=== PATIENT | male | born 1990 | race Caucasian/White ===

== ENCOUNTER 2019-07-25 14:25 | Emergency (ER) | payer BC, OTHER ==
[~2019-07-25] VITALS: Ht 175 cm; Wt 116.7 kg
[2019-07-25] MEDS ORDERED: LIDOCAINE 1% INJ 20 ML 20 ML VIAL ONE (14:37)
[2019-07-25] MEDS ORDERED: oxyCODONE/APAP 5/325MG (PERCOCET 5) TABLET PO ONE (14:45)
[2019-07-25] MEDS ORDERED: TETANUS,DIPTH,PERTUSS P/F (BOOSTRIX) 0.5 ML VIAL IM ONE (14:45)
[2019-07-25] MEDS ORDERED: ceFAZolin 2 GM IV Premixed 50 ML IV ONE (15:15)
--- NOTE | 2019-07-25 15:23 | Diagnostic Imaging Report ---
INDICATION: Injury to left thumb AP, oblique, and lateral views of the left thumb are obtained. There is an acute avulsion fracture of the distal tip of the 1st distal phalanx with about 11 mm of separation of the fracture fragments. The fracture does not appear to extend to the interphalangeal joint. There is no radiopaque foreign body. Some soft tissue gas is present at the fracture site. IMPRESSION: Acute fracture with avulsion of the tip of the 1st distal phalanx. There is no radiopaque foreign body. Dictated by: Dictated on workstation # [id number]
[2019-07-25] MEDS ORDERED: LIDOCAINE 1% INJ 20 ML 20 ML VIAL INJ ONE (15:30)
[2019-07-25] MEDS ORDERED: ceFAZolin INJECTION 2,000 MG ONE (15:31)
[2019-07-25] MEDS ORDERED: NS (IVPB) 50 ML ONE (15:32)
[2019-07-25] MEDS ORDERED: fentaNYL INJECTION 100 MCG/2 ML AMP IVP ONE (16:00)
--- NOTE | 2019-07-25 16:02 | ED General ---
General Chief Complaint: Upper Extremity Stated Complaint: LT THUMB INJ Nursing Triage Note: Was roping calves approximately 15 minutes prior to arrival and got thumb wrapped in loops of the rope. His left thumb has an open wound with the bone exposed. Is able to move thumb. Is rating pain at 6/10. States he is not up to date on tetanus vaccine. Nursing Sepsis Screen: No Definite Risk History of Present Illness Date Seen by Provider: Jul 25, 2019 Time Seen by Provider: 15:57 Initial Comments Patient presenting to emergency department shortly after sustaining a thumb injury. He had a rope tied around his left thumb when he 600 pound cow pulled at the rope causing a partial amputation. He has amputation just distal to the IP joint on his left thumb that wraps around. His nail is intact. He has numbness to the tip with intact flexion. He says his tetanus is not up-to-date. Patient says he is healthy and takes no medications on a regular basis. Allergies and Home Medications Allergies Coded Allergies: No Known Drug Allergies (Unverified , 07/25/19) Patient Home Medication List Home Medication List Reviewed: Yes Review of Systems Review of Systems Constitutional: no symptoms reported EENTM: no symptoms reported Respiratory: no symptoms reported Cardiovascular: no symptoms reported Gastrointestinal: no symptoms reported Genitourinary: no symptoms reported Musculoskeletal: no symptoms reported Skin: other (laceration) Psychiatric/Neurological: Numbness All Other Systems Reviewed Negative Unless Noted: Yes Past Oocfamq-Qyuday-Jlniez Hx Patient Social History Alcohol Use: Occasionally Uses Recreational Drug Use: No Smoking Status: Never a Smoker 2nd Hand Smoke Exposure: Yes Recent Foreign Travel: No Contact w/Someone Who Travel: No Recent Infectious Disease Expo: No Recent Hopitalizations: No Physical Abuse: No Sexual Abuse: No Mistreated: No Fear: No Seasonal Allergies Seasonal Allergies: No Past Medical History Surgeries: No Respiratory: No Cardiac: No Neurological: No Genitourinary: No Gastrointestinal: No Musculoskeletal: No Endocrine: No HEENT: No Cancer: No Psychosocial: No Integumentary: No Blood Disorders: No Adverse Reaction/Blood Tranf: No Physical Exam Vital Signs Vital Signs - First Documented 07/25/19 14:29 Temp 36.8 Pulse 88 Resp 18 B/P (MAP) 160/84 (109) Pulse Ox 98 Capillary Refill : Less Than 3 Seconds Height, Weight, BMI Height: '" Weight: lbs. oz. kg; 38.00 BMI Method: General Appearance: No Apparent Distress, WD/WN HEENT: PERRL/EOMI Neck: Supple Respiratory: No Respiratory Distress Cardiovascular: Regular Rate, Rhythm Back: Normal Inspection Extremity: Other (decreased capillary refill and left thumb.) Neurologic/Psychiatric: Alert, Oriented x3, Motor Weakness (extension of left thumb is partially intact), Sensory Deficit (sensation diminished and tip of left thumb) Skin: Other (laceration wrapping from the nail edge distally and wraps around approximately on the volar surface. Wound examined bloodless field and there is no obvious foreign body. Extensor tendon cannot be completely visualized.) Procedures/Interventions Progress Ring block done on left thumb. Approximately 7 cc of lidocaine 1% was injected in a ring fashion on the left thumb with no complications visualized. Wound was cleansed and irrigated and then wrapped. Progress/Results/Core Measures Suspected Sepsis Recent Fever Within 48 Hours: No Infection Criteria Present: None New/Unexplained Altered Menta: No Sepsis Screen: No Definite Risk SIRS Temperature: Pulse: 88 Respiratory Rate: 18 Blood Pressure 160 /84 Mean: 109 Results/Orders My Orders Orders - ISAEL BRODY DO Finger(S) (07/25/19 14:35) Dipht,Pertuss(Acell),Tet Adult (Boostrix (07/25/19 14:45) Oxycodone/Apap 5/325mg Tablet (Percocet (07/25/19 14:45) Lidocaine 1% Inj 20 Ml (Xylocaine 1% Inj (07/25/19 14:37) Cefazolin 2 Gm Iv Premixed (Ancef 2 Gm P (07/25/19 15:15) Lidocaine 1% Inj 20 Ml (Xylocaine 1% Inj (07/25/19 15:30) Cefazolin Injection (Ancef Injection) (07/25/19 15:31) Ns (Ivpb) (Sodium Chloride 0.9% Ivpb Bag (07/25/19 15:32) Medications Given in ED Current Medications Medications Dose Ordered Sig/Lima Route Start Time Stop Time Status Last Admin Dose Admin Cefazolin Sodium/ Dextrose 50 ml @ 100 mls/hr ONCE ONCE IV 07/25/19 15:15 07/25/19 15:44 DC 07/25/19 15:51 100 MLS/HR Diphtheria/ Tetanus/Acell Pertussis 0.5 ml ONCE ONCE IM 07/25/19 14:45 07/25/19 14:46 DC 07/25/19 15:20 0.5 ML Lidocaine HCl 20 ml ONCE ONCE INJ 07/25/19 15:30 07/25/19 15:31 DC 07/25/19 14:50 20 ML Oxycodone/ Acetaminophen 1 tab ONCE ONCE PO 07/25/19 14:45 07/25/19 14:46 DC 07/25/19 14:56 1 TAB Vital Signs/I&O 07/25/19 14:29 Temp 36.8 Pulse 88 Resp 18 B/P (MAP) 160/84 (109) Pulse Ox 98 Capillary Refill : Less Than 3 Seconds Blood Pressure Mean: 109 POS Progress Note : Progress Note I initially spoke to [facility] however they said they have no hand coverage that I spoke to [address] Luevano in the ER is willing to accept patient. Tetanus and Ancef given here. I did not feel good about simply closing his wound as it is open and he is at risk for infection and I do not believe his functionally intact if his wound is closed. I told patient that I do not know exactly what we done at [address] however from my thumb I would want further physicians to look at it. Patient verbalized understanding and is agreeable. He is requesting POV transfer as he will have his boss drive him to [facility]. Departure Impression Primary Impression: Open fracture of left thumb Qualified Codes: S62.515B - Nondisplaced fracture of proximal phalanx of left thumb, initial encounter for open fracture Additional Impression: Near amputation of finger of left hand Disposition: XFER SHT-TRM HOSP Condition: Stable Transfer Transfer Reason: Exceeds level of care Time Spoke to Accepting Phy: 16:20 Transfer Time: 16:20 Transfer Facility: [facility] Method of Transfer: Private Vehicle Departure-Patient Inst. Referrals: NO,LOCAL PHYSICIAN (PCP/Family) Primary Care Physician ISAEL BRODY DO Jul 25, 2019 16:02 POS
[2019-07-25 16:04] VITALS: BP 143/71
[2019-07-25] MEDS ORDERED: fentaNYL INJECTION 100 MCG/2 ML AMP ONE (16:10)
--- NOTE | 2019-07-25 16:25 | NUR ---
Patient transferred at this time via private vehicle to [facility] emergency department.
== END 2019-07-25 16:30 | disposition short-term general hospital (02) ==
LOC: ER FS 14:27
DX: S62.515B Nondisplaced fracture of proximal phalanx of left thumb, initial encounter for open fracture (principal); Z77.22 Contact with and (suspected) exposure to environmental tobacco smoke (acute) (chronic); W23.1XXA Caught, crushed, jammed, or pinched between stationary objects, initial encounter
CPT/HCPCS: 64450; 73140; 90715